=== PATIENT | male | born 1980 | race Caucasian/White ===

== ENCOUNTER → 2022-09-28 16:03 | Outpatient (CLI) | payer BC, SELFPAY ==
--- NOTE | ~2022-09-28 | XR_ITS ---
EXAM: XR wrist RT min 3V DATE: 09/28/2022 16:21 HISTORY: Primary osteoarthritis, right wrist . COMPARISON: None available. FINDINGS: Normal mineralization. No fracture or dislocation. No lytic or blastic lesion. Mild osteop hytosis at the trapeziometacarpal joint, the DIP joint of the fifth digit, and the interphalangeal lynn int of the thumb. The remaining joint spaces are normal. No erosion or periosteal change. Soft tissue s within normal limits. IMPRESSION: Mild polyarticular osteoarthritis. Reviewed, dictated and finalized at location [facility].
== END ==
PROVIDERS: PCP Plastic Surgery; Visit Provider Plastic Surgery
DX: M19.031 Primary osteoarthritis, right wrist (principal)
CPT/HCPCS: 73110

== ENCOUNTER 2022-11-15 08:27 | Outpatient (CLI) | payer BC, SELFPAY ==
--- NOTE | 2022-11-15 11:00 | NEURO_ITS ---
Impression: Patient reports a history of paresthesias in bilateral upper extremities. # Normal nerve conduction study. # Needle/EMG exam not requested. # Clinical correlation recommended. Nerve Conduction Studies Anti Sensory Summary Table Stim Site NR Peak (ms) P-T Amp (?V) Site1 Site2 Delta-P (ms) Dist (cm) Morales (m/s) Left Median Anti Sensory (2-3nd Digit) Wrist 3.2 34.2 Wrist 2-3nd Digit 3.2 14.0 44 Wrist 3.5 37.1 Wrist 2-3nd Digit 3.2 14.0 44 Right Median Anti Sensory (2-3nd Digit) Wrist 2.8 43.9 Wrist 2-3nd Digit 2.8 14.0 50 Wrist 3.0 20.4 Wrist 2-3nd Digit 2.8 14.0 50 Left Radial Anti Sensory (Base 1st Digit) Wrist 1.5 19.0 Wrist Base 1st Digit 1.5 0.0 Right Radial Anti Sensory (Base 1st Digit) Wrist 1.4 11.7 Wrist Base 1st Digit 1.4 0.0 Left Ulnar Anti Sensory (5th Digit) Wrist 2.7 17.0 Wrist 5th Digit 2.7 14.0 52 Right Ulnar Anti Sensory (5th Digit) Wrist 2.8 38.8 Wrist 5th Digit 2.8 14.0 50 Motor Summary Table Stim Site NR Onset (ms) O-P Amp (mV) Site1 Site2 Delta-0 (ms) Dist (cm) Morales (m/s) Left Median Motor (Abd Poll Brev) Wrist 3.4 7.0 Elbow Wrist 3.7 21.0 57 Elbow 7.1 6.5 Right Median Motor (Abd Poll Brev) Wrist 3.2 6.1 Elbow Wrist 3.8 22.0 58 Elbow 7.0 4.6 Left Ulnar Motor (Abd Dig Minimi) Wrist 2.1 5.7 A Elbow Wrist 5.2 30.0 58 A Elbow 7.3 3.3 B Elbow Wrist 3.2 20.0 63 B Elbow 5.3 3.4 Right Ulnar Motor (Abd Dig Minimi) Wrist 2.2 6.9 A Elbow Wrist 4.7 27.0 57 A Elbow 6.9 4.6 B Elbow Wrist 3.1 18.0 58 B Elbow 5.3 5.4 F Wave Studies NR F-Lat (ms) L-R F-Lat (ms) Left Median (Mrkrs) (Abd Poll Brev) 27.05 0.53 Right Median (Mrkrs) (Abd Poll Brev) 27.58 0.53 Left Ulnar (Mrkrs) (Abd Dig Min) 27.13 0.12 Right Ulnar (Mrkrs) (Abd Dig Min) 27.25 0.12 MTDD
== END 2022-11-15 08:28 | disposition home or self-care (01) ==
PROVIDERS: PCP Plastic Surgery; Visit Provider Plastic Surgery
DX: R20.2 Paresthesia of skin (principal)
CPT/HCPCS: 95886; 95911

== ENCOUNTER → 2022-12-02 10:13 | Outpatient (CLI) | payer BC, SELFPAY ==
--- NOTE | ~2022-12-02 | XR_ITS ---
XR_[id number]_CR DATE: 12/02/2022 10:39 INDICATION: Right arm pain, numbness TECHNIQUE: AP, lateral, open-mouth views COMPARISON: None FINDINGS: C1 and C2 are normally aligned and the odontoid process is intact. There is minimal levoscoliosis. Mild straightening of the cervical spine. No fracture or dislocation or locked facet or prevertebral soft tissue swelling. Cervical interspaces are well preserved. IMPRESSION: Straightening and mild levoscoliosis Reviewed, dictated and finalized at Location [facility]. . Reviewed, dictated and finalized at location []
== END ==
PROVIDERS: PCP Internal Medicine; Visit Provider Plastic Surgery
DX: M47.22 Other spondylosis with radiculopathy, cervical region (principal)
CPT/HCPCS: 72040

== ENCOUNTER 2023-01-02 00:26 | Day surgery (SDC) | payer BC, SELFPAY ==
[2022-12-22 10:53] VITALS: BMI 29.9
[2023-01-02 09:16] VITALS: BP 128/81; PULSE 63; RESP 16; TEMP 36.2; O2SAT 99; BMI 30.6
[2023-01-02] MEDS: LACTATED RINGERS 1,000 ML 150 ML IV CONT (09:22)
--- NOTE | 2023-01-02 10:06 | PM.HPGS ---
History of Present Illness History of Present Illness Consent: Risks, benefits, and alternatives have been discussed and questions answered. Patient agrees to proceed with procedure. Chief complaint: hx of colon polyps Narrative: Braden Hardy III is a 42 year old male referred for colon cancer screening. He had a colonoscopy about 20 years ago and had a polyp or 2 removed at that time. Review of Systems Review of Systems: All systems reviewed & are unremarkable except as noted in HPI and below PMFSH Social History Social History Smoking status: Never smoker Alcohol intake: current Drinks per week: 8 Substance use: never Substance use type: does not use Living arrangements: with family Spiritual care concerns: No Meds Home Medications and Allergies Home Medications Medication Instructions Recorded Confirmed Type fluticasone propionate 50 1 spray intranasal PRN PRN Sinus 12/22/22 01/02/23 History mcg/actuation nasal Symptoms spray,suspension montelukast 10 mg tablet 10 mg PO PRN PRN Sinus Symptoms 12/22/22 01/02/23 History Allergies Allergy/AdvReac Type Severity Reaction Status Date / Time Penicillins Allergy Rash Verified 01/02/23 09:15 Sulfa (Sulfonamide Allergy Rash Verified 01/02/23 09:15 Antibiotics) Vital Signs Vital Signs - 24 hr 01/02/23 09:16 Temperature 36.2 C L Pulse Rate 63 Respiratory Rate 16 Blood Pressure 128/81 Pulse Oximetry 99 Oxygen Delivery Room Air Exam Const: General: alert Orientation/consciousness: patient oriented x3 Resp: Auscultation: clear to auscultation bilaterally Cardio: Rhythm: regular rhythm GI: GI Palp: Yes Soft to palpation and No Tenderness to palpation present (GI) Neuro: General: patient oriented x3 Assessment and Plan Assessment and plan (1) Colon cancer screening: Code(s): Z12.11 - Encounter for screening for malignant neoplasm of colon Status: Acute Assessment and Plan: Colonoscopy with possible biopsy or polypectomy or cautery or injection of substances.
--- NOTE | 2023-01-02 10:13 | P.PNAN_ITS ---
Anes - Initial Pre Proc Eval Procedure: Operation Date: 01/02/23 10:45 Proposed Procedures p Colonoscopy - Otis Ryder MD Date/Time: 01/02/23 10:13 Surgeon: Otis Ryder MD Pre Op Diagnosis: hx of colon polyps Patient Data Age: 42 Gender: M Height: 1.68 m Weight: 86 kg Last Vital Signs Temp 97.2 F L 01/02/23 09:16 Pulse 63 01/02/23 09:16 Resp 16 01/02/23 09:16 BP 128/81 01/02/23 09:16 Pulse Ox 99 01/02/23 09:16 O2 Del Method Room Air 01/02/23 09:16 Allergies Allergy/AdvReac Type Severity Reaction Status Date / Time Penicillins Allergy Rash Verified 01/02/23 09:15 Sulfa (Sulfonamide Allergy Rash Verified 01/02/23 09:15 Antibiotics) Home Medications Medication Instructions Recorded Confirmed Type fluticasone propionate 50 1 spray intranasal PRN PRN Sinus 12/22/22 01/02/23 History mcg/actuation nasal Symptoms spray,suspension montelukast 10 mg tablet 10 mg PO PRN PRN Sinus Symptoms 12/22/22 01/02/23 History Patient hx anesthesia problems: none Family hx anesthesia problems: none Results Review: All pre-operative results and documents have been reviewed as part of the pre- operative evaluation. [facility] Social History Social History Smoking status: Never smoker Alcohol intake: current Drinks per week: 8 Substance use: never Substance use type: does not use Living arrangements: with family Spiritual care concerns: No Anes - Eval Final PreProcedure Day of Procedure 01/02/23 10:13 Patient weight: obese Heart: regular rate and rhythm Lungs: clear to auscultation Airway: Mallampati scale class II Neurological: alert and oriented Last oral intake: >/= 8 hours ASA classification: II Emergent: no Anesthetic plan: proceed Anesthesia type and monitoring: general GIVS and standard monitoring Results Review: All pre-operative results and documents have been reviewed as part of the pre- operative evaluation. Informed Consent: The patient's anesthetic plan and its attendant risks and benefits were discussed with the patient/family/POA. Questions were solicited and answers provided to the satisfaction of the patient/family/POA.
[2023-01-02] MEDS: SIMETHICONE ORAL SUSPENSION 20 MG/0.3 ML 30 ML BOTTLE 0.6 ML IRRIGATION (10:42)
[2023-01-02 10:52] VITALS: BP 112/70; PULSE 64; RESP 16; O2SAT 97
[2023-01-02 11:02] VITALS: BP 117/68; PULSE 62; RESP 18; O2SAT 98
[2023-01-02 11:12] VITALS: BP 120/81; PULSE 66; RESP 18; O2SAT 100
== END 2023-01-02 11:17 | disposition home or self-care (01) ==
PROVIDERS: PCP Internal Medicine; Visit Provider Internal Medicine Gastroenterology
PROC: 0DJD8ZZ Inspection of Lower Intestinal Tract, Via Natural or Artificial Opening Endoscopic (ICD-10-PCS; CPT 45378; principal; 2023-01-02 10:45)
DX: Z12.11 Encounter for screening for malignant neoplasm of colon (principal); E66.9 Obesity, unspecified; Z68.30 Body mass index [BMI] 30.0-30.9, adult
CPT/HCPCS: 45378; J2704; J7120